=== PATIENT | female | born 1955 | race Caucasian/White ===

== ENCOUNTER → 2016-12-28 | Outpatient (CLI) | payer OTHER | LOC: MC.RAD 09:00 | DX: Z12.31 Encounter for screening mammogram for malignant neoplasm of breast (principal) ==

== ENCOUNTER → 2019-04-01 | Outpatient (CLI) | payer MEDICARE, OTHER | LOC: MC.RAD 07:14 | DX: Z12.31 Encounter for screening mammogram for malignant neoplasm of breast (principal) ==

== ENCOUNTER → 2019-08-26 | Outpatient (CLI) | payer MEDICARE, OTHER | LOC: DIA.ED 11:55 | DX: E11.9 Type 2 diabetes mellitus without complications (principal); E78.5 Hyperlipidemia, unspecified; E66.9 Obesity, unspecified | CPT/HCPCS: G0108 ==

== ENCOUNTER → 2019-10-02 | Outpatient (CLI) | payer MEDICARE, OTHER | LOC: DIA.ED 10:07 | DX: E11.9 Type 2 diabetes mellitus without complications (principal); E78.5 Hyperlipidemia, unspecified; E66.9 Obesity, unspecified ==